=== PATIENT | male | born 1955 | race Caucasian/White ===

== ENCOUNTER → 2019-11-24 10:24 | Outpatient (CLI) | payer MEDICARE, SELFPAY ==
--- NOTE | ~2019-11-24 | XR_ITS ---
EXAMINATION: XR knee RT min 4V EXAM DATE: 11/24/2019 10:39 INDICATION: No known recent injury provided at this time. Pain of the right knee. TECHNIQUE: Right knee lateral, frontal AP, frontal PA tunnel, sunrise projections. There is no prior study for comparison. FINDINGS: No evidence osteochondral defect or joint body in the right knee joint. Dense meniscal c alcification, chondrocalcinosis. Chondrocalcinosis can be an age related finding, but with other poss ible etiologies including CPPD, parathyroid disorders, hemochromatosis, gout. There is moderate rig ht knee primary osteoarthritis. There are no acute fractures or dislocations identified. There is no subcutaneous gas. There is small joint effusion. There are no radiopaque foreign bodies. IMPRESSION: 1. Small joint effusion. 2. Moderate osteoarthritis. 3. Chondrocalcinosis. Reviewed, dictated and finalized at location A.
== END ==
PROVIDERS: PCP Family Medicine; Visit Provider Physician Assistant
DX: M17.11 Unilateral primary osteoarthritis, right knee (principal); M25.461 Effusion, right knee; M11.261 Other chondrocalcinosis, right knee
CPT/HCPCS: 73564

== ENCOUNTER 2021-01-02 01:09 | Day surgery (SDC) | payer MEDICARE, SELFPAY ==
[2020-12-18 14:42] VITALS: BMI 32.0
[2021-01-02 08:16] VITALS: BP 157/92; PULSE 88; RESP 16; TEMP 36.4; O2SAT 99
--- NOTE | 2021-01-02 08:18 | P.PNAN_ITS ---
Anes - Initial Pre Proc Eval Procedure: Operation Date: 01/02/21 09:30 Proposed Procedures p Screening Colonoscopy - Juancarlos Parks MD Date/Time: 01/02/21 08:18 Surgeon: Juancarlos Parks MD Pre Op Diagnosis: hx of colon polyps Patient Data Age: 65 Gender: M Height: 1.83 m Weight: 107 kg Allergies Allergy/AdvReac Type Severity Reaction Status Date / Time No Known Allergies Allergy Unknown Verified 01/02/21 08:15 Home Medications Medication Instructions Recorded Confirmed Type aspirin 81 mg tablet,delayed 81 mg PO DAILY 02/25/19 12/18/20 History release cholecalciferol (vitamin D3) 25 25 mcg PO DAILY 08/09/19 12/18/20 History mcg (1,000 unit) capsule apremilast 30 mg tablet 30 mg PO DAILY 01/28/20 12/18/20 History lisinopril 10 1 tablet PO DAILY #90 tablet 08/16/20 12/18/20 Rx mg-hydrochlorothiazide 12.5 mg tablet metoprolol succinate 50 mg 50 mg PO DAILY #90 tablet 08/16/20 12/18/20 Rx tablet,extended release 24 hr rosuvastatin 20 mg tablet 20 mg PO DAILY #90 tablet 10/13/20 12/18/20 Rx sodium,potassium,mag sulfates 17.5 See Rx Instructions PO .COMPLEX 12/08/20 Rx gram-3.13 gram-1.6 gram oral soln #354 ml diclofenac sodium 75 mg PO BID PRN 12/18/20 12/18/20 History Patient hx anesthesia problems: none Family hx anesthesia problems: none Results Review: All pre-operative results and documents have been reviewed as pa rt of the pre-operative evaluation. [facility] Past Medical History Medical History (Updated 01/02/21 @ 08:20 by Yevgeniy Anderson MD) Essential (primary) hypertension Hepatitis C antibody test negative (12/28/16) Mixed hyperlipidemia Obesity (BMI 30-39.9) Osteoarthritis of right knee Type 2 diabetes mellitus without complications Family History Family History Mother Patient's mother is , Onset Age: 75 Father Patient's father is , Onset Age: 75 Sibling Diabetes mellitus Hypertension Family history of malignant neoplasm of urinary bladder Social History Social History (Updated 10/13/20 @ 15:36 by Shannan Richards PA-C) Smoking status: Former smoker Alcohol intake: current Drinks per week: 15 Substance use: never Substance use type: does not use Living arrangements: with family Gender identity (if verbalized by the patient): Male Sexual Orientation (if Verbalized by the Patient): Straight or Heterosexual Spiritual care concerns: No Anes - Eval Final PreProcedure Day of Procedure 01/02/21 08:18 Patient weight: obese Heart: regular rate and rhythm Lungs: clear to auscultation and normal air movement Airway: Mallampati scale class II Neurological: alert and oriented Last oral intake: >/= 8 hours ASA classification: III Emergent: no Anesthetic plan: proceed Anesthesia type and monitoring: general GIVS Results Review: All pre-operative results and documents have been reviewed as part of the pre-operative evaluation. Informed Consent: The patient's anesthetic plan and its attendant risks and benefits were discussed with the patient/family/POA. Questions were solicited and answers provided to the satisfaction of the patient/family/POA.
[2021-01-02] MEDS: LACTATED RINGERS 1,000 ML 150 ML IV CONT (08:29)
--- NOTE | 2021-01-02 08:46 | WPDGICN ---
Assessment and Plan Assessment and plan (1) History of colon polyps: Code(s): Z86.010 - Personal history of colonic polyps Status: Acute Assessment and Plan: Patient has a prior history of colon polyps. Plan is for surveillance colonoscopy at this time. Further recommendations will be given after endoscopy. GI Consult Note Consult date/time: 01/02/21 08:46 HPI: Leo Pete is a 65 year old male Presents for screening colonoscopy. Patient has a history of colon polyps by endoscopy 10 years ago. Five years ago colonoscopy was unremarkable. He presents today for follow-up examination. Patient's current weight appetite bowel movements are normal. He denies abdominal pain. His family history is noncontributory. Review of Systems Review of Systems: All systems reviewed & are unremarkable except as noted in HPI and below PMFSH Past Medical History Medical History (Updated 01/02/21 @ 08:48 by Juancarlos Parks MD) Essential (primary) hypertension Hepatitis C antibody test negative (12/28/16) Mixed hyperlipidemia Obesity (BMI 30-39.9) Osteoarthritis of right knee Type 2 diabetes mellitus without complications Family History Family History Mother Patient's mother is , Onset Age: 75 Father Patient's father is , Onset Age: 75 Sibling Diabetes mellitus Hypertension Family history of malignant neoplasm of urinary bladder Social History Social History (Updated 10/13/20 @ 15:36 by Shannan Richards PA-C) Smoking status: Former smoker Alcohol intake: current Drinks per week: 15 Substance use: never Substance use type: does not use Living arrangements: with family Gender identity (if verbalized by the patient): Male Sexual Orientation (if Verbalized by the Patient): Straight or Heterosexual Spiritual care concerns: No Meds Home Medications and Allergies Home Medications Medication Instructions Recorded Confirmed Type aspirin 81 mg tablet,delayed 81 mg PO DAILY 02/25/19 01/02/21 History release cholecalciferol (vitamin D3) 25 25 mcg PO DAILY 08/09/19 01/02/21 History mcg (1,000 unit) capsule apremilast 30 mg tablet 30 mg PO DAILY 01/28/20 01/02/21 History lisinopril 10 1 tablet PO DAILY #90 tablet 08/16/20 01/02/21 Rx mg-hydrochlorothiazide 12.5 mg tablet metoprolol succinate 50 mg 50 mg PO DAILY #90 tablet 08/16/20 01/02/21 Rx tablet,extended release 24 hr rosuvastatin 20 mg tablet 20 mg PO DAILY #90 tablet 10/13/20 01/02/21 Rx sodium,potassium,mag sulfates 17.5 See Rx Instructions PO .COMPLEX 12/08/20 01/02/21 Rx gram-3.13 gram-1.6 gram oral soln #354 ml diclofenac sodium 75 mg PO BID PRN 12/18/20 01/02/21 History Allergies Allergy/AdvReac Type Severity Reaction Status Date / Time No Known Allergies Allergy Unknown Verified 01/02/21 08:15 Vital Signs Vital Signs - 24 hr 01/02/21 08:16 Temperature 97.5 F L Pulse Rate 88 Respiratory Rate 16 Blood Pressure 157/92 H Pulse Oximetry 99 Exam Narrative: Physical exam reveals patient to be alert. Vital signs stable. HEENT exam is unremarkable. Patient is anicteric. Lungs are clear to auscultation and percussion. Heart is without murmur or extra sounds. Abdominal exam bowel sounds are present soft nontender with no organomegaly. Digital external rectal exam is normal.
[2021-01-02 09:49] VITALS: BP 125/78; PULSE 60; RESP 13; O2SAT 95
[2021-01-02 09:59] VITALS: BP 120/70; PULSE 62; RESP 13; O2SAT 97
[2021-01-02 10:09] VITALS: BP 127/84; PULSE 58; RESP 15; O2SAT 95
== END 2021-01-02 10:12 | disposition home or self-care (01) ==
PROVIDERS: PCP Family Medicine; Visit Provider Internal Medicine Gastroenterology
PROC: 0DJD8ZZ Inspection of Lower Intestinal Tract, Via Natural or Artificial Opening Endoscopic (ICD-10-PCS; CPT 45378; principal; 2021-01-02 09:30)
DX: Z12.11 Encounter for screening for malignant neoplasm of colon (principal); K57.30 Diverticulosis of large intestine without perforation or abscess without bleeding; Z86.010 Personal history of colon polyps; I10 Essential (primary) hypertension; E78.2 Mixed hyperlipidemia; E11.9 Type 2 diabetes mellitus without complications; E66.9 Obesity, unspecified; Z68.32 Body mass index [BMI] 32.0-32.9, adult; Z87.891 Personal history of nicotine dependence; Z79.82 Long term (current) use of aspirin
CPT/HCPCS: G0105; J2704; J7120

== ENCOUNTER 2021-07-23 07:41 | Outpatient (CLI) | payer MEDICARE, SELFPAY ==
--- NOTE | ~2021-07-23 | MR_ITS ---
EXAMINATION: MR lumbar spine wo con DATE: 07/23/2021 08:19 INDICATION: Low back pain. Left lower extremity numbness. Bilateral leg pain. TECHNIQUE: Magnetic resonance imaging (MRI) of the lumbar spine was performed without intravenous con trast. Sequences included sagittal T2-weighted FSE, sagittal T2-weighted FS FSE, sagittal T1-weighted FSE, and axial T2-weighted FSE. COMPARISON: Lumbar spine radiographs 07/01/2007 FINDINGS: There is 9 degrees dextrocurvature of lumbar spine. There is mild chronic anterior wedging of T11-L1 vertebral bodies. There is 3 mm retrolisthesis of L1 on L2, L2 on L3, L3 on L4, and L4 on L 5. There is moderately decreased disc height at L1-L2, severely decreased disc height at L2-L3, mildl y decreased disc height at L3-L4, moderately decreased disc height at L4-L5, and severely decreased d isc height at L5-S1 with endplate remodeling. The distal spinal cord signal intensity is normal. The conus medullaris is at T12-L1. The following disc levels are specifically discussed: L1-L2: The disc is bulging and has an annular fissure. There is mild left facet joint osteoarthritis. There is moderate right and mild left neural foraminal stenosis. There is mild central canal stenosi s. L2-L3: The disc is bulging and has an annular fissure. There is mild bilateral facet joint osteoarthr itis. There is mild right and moderate left neural foraminal stenosis. There is mild central canal st enosis. L3-L4: The disc is bulging and has an annular fissure. There is mild bilateral facet joint osteoarthr itis. There is moderate right and mild left neural foraminal stenosis. There is mild central canal st enosis. L4-L5: The disc is bulging and has an annular fissure. There is mild bilateral facet joint osteoarthr itis. There is moderate bilateral neural foraminal stenosis. There is mild central canal stenosis. L5-S1: The disc is bulging and has an annular fissure. There is moderate bilateral facet joint osteoa rthritis. There is mild bilateral neural foraminal stenosis. There is mild central canal stenosis. IMPRESSION: 1. Severe lumbar spondylosis. Reviewed, dictated and finalized at location B.
== END 2021-07-23 07:42 | disposition home or self-care (01) ==
PROVIDERS: PCP Family Medicine; Visit Provider Family Medicine
DX: R20.0 Anesthesia of skin (principal); M47.896 Other spondylosis, lumbar region
CPT/HCPCS: 72148

== ENCOUNTER 2024-01-21 09:15 | Outpatient (CLI) | payer MEDICARE, SELFPAY ==
--- NOTE | ~2024-01-21 | US_ITS ---
EXAMINATION: US soft tissue LE RT DATE: 01/21/2024 09:35 INDICATION: Localized swelling, mass and lump, right foot. TECHNIQUE: Multiple grayscale and Doppler ultrasound images of the right foot were obtained. COMPARISON: None FINDINGS: There is no abnormal mass at the plantar aspect of right foot in the patient's area of conc tiffanie. IMPRESSION: 1. No abnormal mass at the plantar aspect of right foot in the patient's area of concern. Reviewed, dictated and finalized at location A. 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 No abnormal mass at the plantar aspect of right foot in the patient's area o f concern.
== END 2024-01-21 09:16 | disposition home or self-care (01) ==
PROVIDERS: PCP Nurse Practitioner; Visit Provider Nurse Practitioner
DX: R22.41 Localized swelling, mass and lump, right lower limb (principal)
CPT/HCPCS: 76882